=== PATIENT | female | born 2000 | race Caucasian/White ===

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

== ENCOUNTER 2024-07-23 14:00 | Outpatient (RCR) | payer SELFPAY, OTHER ==
--- NOTE | 2024-07-23 16:35 | HP.PTEVAL_ITS ---
Patient's Visit Information Visit Information Visit Information: SHAMIKA SORIA is a 23 year old F referred to Physical Therapy by ELVA BAKER with a diagnosis of DYSPAREUNIA FOLLOWING CHILDBIRTH. Date of Evaluation: 07/13/24 Physical Therapist: Aileen Gibbs PT, Cert MDT Visit Plan Frequency: 1x/Week Duration: 6-12 WKS Plan: PF THERAPY FOR LENGTHENING/RELAXATION AND ENDURANCE TRAINING INCLUDING MANUAL THERAPY. PELVIC FLOOR ANATOMY EDUCATION. CORE STRENGTHENING. POSTURE TRAINING. RELAXATION TRAINING. PELVIC FLOOR DOWN TRAINING. 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 Disability: NO Present symptoms: DYSPAREUNIA. PAIN DURING AND FOR 3-4 HOURS AFTER INTERCOURSE. PATIENT REPORTS THE PAIN IS DEEP VS SUPERICIAL DURING INTERCOURSE. PATIENT DENIES ANY OTHER PAIN. PATIENT DENIES PAIN WITH URINATION. SHE ALSO DENIES HAVING VAGINAL DISCHARGE. OTHER: PATIENT REPORTS THAT HER IS SYMPATHETIC TO HER PAIN. Present since: 2 MONTHS POST CHILDBIRTH Pain Scale: 0-5/10 Currently: 0/10 Is it getting better, worse or staying the same: STAYING THE SAME Commenced as a result of: CHILDBIRTH Symptoms at onset: PAIN WAS MORE INTENSE AND LASTED LONGER Worse: NOTHING Better: NOTHING Disturbed sleep: NO Previous history/Previous treatment: VAGINAL DELIVERY WITH 3RD DEGREE TEAR. BABY WAS 10LBS, 4OZ. Treatment this episode: STITCHES - NO COMPLICATIONS Coughing/sneezing/straining: A LITTLE BIT OF URINARY LEAKING SOME OF THE TIME Gait: NORMAL How long can you delay the need to urinate: ABOUT AN HOUR - NO PAIN Prolapse (Falling out feeling): NO Frequency of Urination: 3 TO 4 HOURS Ability to stop urine flow: YES Ability to initiate urine stream: YES Dyspareunia: YES Bowel Incontinence: NO Unexplained weight loss: NO Imaging: NO PMH/Recent major surgery: UNREMARKABLE. CHIROPRACTIC ONCE A MONTH TO JUST KEEP EVERYTHING IN SHAPE. Objective Objective: Sitting/Standing Posture: FAIR. VERY SLOUCHED IN SITTING. L SHLD LEVEL LOWER THAN R IN STANDING. MILD ANTERIOR PELVIC TILT IN STANDING. JEANETTE ILIAC CRESTS SYMMETRICAL IN STANDING. Active Correction of posture: ABLE TO CORRECT BUT DOES NOT MAINTAIN. Other Observations: INDEP GAIT AND TRANSFERS Sensory deficit: JEANETTE LE LIGHT TOUCH SENSATION GROSSLY INTACT AND SYMMETRICAL ROM deficit: JEANETTE LE ROM WFL Motor deficit: JEANETTE LE STENGTH GROSSLY 5/5. PELVIC FLOOR STRENGTH WITH INTERNAL VAGINAL MANUAL TESTING 4/5 X 8 SEC X 5 WITHOUT C/O INCREASED PAIN. Dural Signs: NEGATIVE JEANETTE LE'S. Lumbar mvmt loss: flex - NIL ext - MOD R SG - MIN L SG - MIN PATIENT C/O LBP WITH LUMBAR EXT ROM TESTING Core strength: FAIR Palpation: NO ACUTE LUMBAR TENDERNESS. INCREASED TENDERNESS WITH PALPATION OF PELVIC FLOOR AT 1&2 O'CLOCK, 3&4 O'CLOCK OF 2ND AND 3RD LAYERS AND MILD INCREASED TONE AND TENDERNESS THROUGHOUT. FUNCTIONAL SCREEN: Incontinence Impact Questionnaire Score: 3 Urogenital Distress Inventory Score: 3 Goals Goal 1:: PATIENT WILL BE ABLE TO RELAX PELVIC FLOOR WITH THERAPEUTIC EXERCISE AND RELAXATION TECHNIQUES TO DECREASE TONE. Goal Time Frame: 4-6 Weeks Goal 2:: PATIENT WILL BE ABLE TO HAVE SEXUAL RELATIONS WITH HER WITHOUT PAIN DURING OR AFTER INTERCOURSE. Goal Time Frame: 6-8 Weeks Goal 3:: PATIENT WILL BE ABLE TO MAINTAIN PROPER POSTURE CONTROL THROUGHOUT THERAPY SESSION WITHOUT CUEING. Goal Time Frame: 4-6 Weeks Goal 4:: PATIENT WILL BE INDEP WITH A HEP FOR CONTINUED IMPROVEMENT ONCE FORMAL PHYSICAL THERAPY CONCLUDES. Goal Time Frame: 8-12 Weeks Rehabilitation Potential Physical Therapy Diagnosis: TENDERNESS AND INCREASED TONE OF PELVIC FLOOR MUSCULATURE. CORE WEAKNESS AND DECREASED POSTURE CONTROL. Rehabilitation Potential: Good Anticipated Interventions Patient/Client Instruction: Educate patient on: Condition, Plan of Care and Risk Factors For the Purpose of:: To improve self management Therapeutic Exercise to Include: Strength training, Postural training, Flexibilty training and Relaxation training For the Purpose of:: To decrease pain, To improve muscle performance and motor function, To increase tolerance to activity/condition/position, To improve ability of physical actions for home/community/work/leisure, To decrease soft tissue restriction, To increase flexibility/ROM and To improve self management Manual Therapy Techniques to Include: Trigger point massage and Soft tissue mobilization For the Purpose of:: To decrease pain, To improve muscle performance and motor function and To decrease soft tissue restriction Text: Thank you for the opportunity to evaluate your patient. For Medicare and Medicare HMO plans, please review the plan of care and approve it. It will need to be FAXED BACK to us at [phone] for Medicare purposes. For Medicare only, by signing this I certify the plan of care. Please let me know if there are questions or concerns regarding this plan of care. Physician Signature: Date:
--- NOTE | 2024-07-30 08:56 | HP.PT.NRP ---
Patient Information Patient Information: SHAMIKA SORIA was seen in my office for initial evaluation on 07/13/24. The following Plan of Care was established for this patient: POC Established Initial Frequency: 1x/Week Initial Duration: 6-12 WKS Anticipated Interventions Patient/Client Instruction: Educate patient on: Condition, Plan of Care and Risk Factors For the Purpose of:: To improve self management Therapeutic Exercise to Include: Strength training, Postural training, Flexibilty training and Relaxation training For the Purpose of:: To decrease pain, To improve muscle performance and motor function, To increase tolerance to activity/condition/position, To improve ability of physical actions for home/community/work/leisure, To decrease soft tissue restriction, To increase flexibility/ROM and To improve self management Manual Therapy Techniques to Include: Trigger point massage and Soft tissue mobilization For the Purpose of:: To decrease pain, To improve muscle performance and motor function and To decrease soft tissue restriction Last Seen Last Seen: This patient was last seen in our office 07/23/24. Pertinent comments regarding their Physical therapy will appear below: This PT rec'd a note from our office staff stating that patient called and cancelled all shady'ts and declined to re-schedule. She has had 2 PT visits. This PT called phone number on file and asked to speak with patient. Person answering phone identified themselves as her and stated that patient is doing a lot better since last shady't (not 100% but a lot better) and she got some advise from some friends too. She is going to see how she does without therapy for awhile and will be back if needed. I asked if he would like me to keep her chart open and he said no. He said to go ahead and close it. I told him we would be happy to see her again in the future as needed. At this point I will be discontinuing this patient from physical therapy. I would be happy to see this patient again in the future if found appropriate by the physician. Thank you! Aileen Gibbs, PT, Cert MDT
== END 2024-07-23 19:00 | disposition home or self-care (01) ==
LOC: PT 14:00
PROVIDERS: PCP Family Medicine
DX: N94.10 Unspecified dyspareunia (principal)
CPT/HCPCS: 97140; 97162; 97530